=== PATIENT | male | born 1960 | race Caucasian/White ===

== ENCOUNTER 2019-12-23 12:05 | Outpatient (NON) | payer OTHER, SELFPAY ==
[2019-12-26 12:25] LABS: SARS-CoV-2 RNA PCR Positive
== END 2019-12-23 12:06 ==
LOC: ANHCOVIDDT 12:07
PROVIDERS: Visit Provider Family Medicine
DX: U07.1 COVID-19 (principal)
CPT/HCPCS: 87635; C9803; U0003

== ENCOUNTER → 2023-03-01 15:40 | Outpatient (CLI) | payer OTHER, SELFPAY ==
--- NOTE | ~2023-03-01 | XR_ITS ---
EXAMINATION: [id number] DATE: 03/01/2023 15:52 INDICATION: Fall on same level, unspecified, initial encounter. TECHNIQUE: A frontal view of the chest and 2 views on 3 radiographs of the right ribs were obtained. COMPARISON: None. FINDINGS: There is mild atelectasis in right lower lung zone. No pleural effusion or pneumothorax. Th e heart size is normal. There are fractures of right seventh and eighth ribs. IMPRESSION: 1. Fractures of right seventh and eighth ribs. Reviewed, dictated and finalized at location E. [employer]
== END ==
PROVIDERS: PCP Nurse Practitioner Family; Visit Provider Nurse Practitioner Family
DX: S22.41XA Multiple fractures of ribs, right side, initial encounter for closed fracture (principal); X58.XXXA Exposure to other specified factors, initial encounter
CPT/HCPCS: 71101